=== PATIENT | female | born 1955 | race Caucasian/White ===

== ENCOUNTER 2023-01-02 18:52 | Emergency (ER) | payer MEDICARE, SELFPAY ==
[2023-01-02 18:57] VITALS: BP 167/87; PULSE 104; RESP 20; TEMP 36.2; O2SAT 98
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
--- OUTSIDE RECORDS SUMMARY | 2023-01-02 19:48 | XMS_ITS | Continuity of Care Document ---
Author Name Unknown Organization [facility] Address [address] [place] [phone] Phone Care Team Providers Care Call Center Coordinator Name Role Phone Vel Guerrero MD Unavailable Unavailable Allergies, Adverse Reactions, Alerts Substance Reaction Status Criticality Sulfa (Sulfonamide Antibiotics) Active No Information Active No Information Medications Medication Instructions Dosage Effective Dates (start - stop) Status Comments aspirin 81 mg chewable tablet chew 1 tablet by oral route every day 81 MG - Active levothyroxine 100 mcg tablet take 1 tablet by oral route every day 100 MCG - Active MAGNESIUM CITRATE (unknown strength) Not Available - Active liothyronine 5 mcg tablet take 1 tablet by oral route every day 5 MCG - Active Co Q-10 100 mg capsule - Active metformin 500 mg tablet Take 2 tablets in AM, 1 tablet in PM - Active rosuvastatin 40 mg tablet take 1 tablet by oral route every day 40 MG - Active meloxicam 15 mg tablet take 1 tablet by oral route every day 15 MG - Active Vitamin D3 125 mcg (5,000 unit) tablet - Active Procedures Procedure Date OFFICE/OUTPATIENT VISIT, EST LE Arterial / Graft Bilateral OFFICE/OUTPATIENT VISIT, EST LORELEI/PPG OFFICE/OUTPATIENT VISIT, EST OFFICE/OUTPATIENT VISIT, NEW Advance Directives Directive Yes / No Effective Date File Name No Information Encounters Encounter Description Practice Location Reason(s) For Visit Diagnoses Date Provider Providers Copied on Encounter [facility], [address] [place] [address], [place], [place], [id number], [place] tel: [phone] [place] Office No Information Mar-2 3 Yolanda Vel. [address] [facility], [place] [address], [place], [id number] . tel: [phone] Referring Provider: Usama Serna, [address] [place] [address] [address], [place], [address]. tel:[phone] OFFICE/OUTPA TIENT VISIT, [facility], [facility] [address], [place], [id number], [place] tel: [phone] [place] 5 R calf pain (chief complaint) Atherosclerosis of craig artery of both lower extremities with intermittent claudication 2 Kavon Ceja er. [address] [facility], [facility] [address], [place], [id number] , [place]. tel: [phone] Referring Provider: Usama Serna, [address] [place] [address] [address], [address]. tel:[phone] OFFICE/OUTPA TIENT VISIT, [facility], [facility] [address], [id number], [place] tel: [phone] [place] 5 PAD (chief complaint) Atherosclerosis of craig artery of both lower extremities with intermittent claudication Sep-0 2 Kavon Ceja er. [address] [facility], [facility] [address], [place], [id number] , [place]. tel: [phone] Referring Provider: Usama Serna, [address] [place] [address] [address], [place], [address]. tel:[phone] OFFICE/OUTPA TIENT VISIT, [facility], [address] [facility] [address], [place], [id number], [place] tel: [phone] [place] 5 PVD w IC (chief complaint) Atherosclerosis of craig artery of both lower extremities with intermittent claudication Adithya-0 2 Kavon Ceja er. [address] [facility], [facility] [address], [place], [id number] , [place]. tel: [phone] Referring Provider: Usama Serna, [address] [facility] [address], [place], [address]. tel:[phone] OFFICE/OUTPA TIENT VISIT, [facility], [address] [facility] [address], [id number], [place] tel: [phone] [place] 5 PVD (chief complaint) Atherosclerosis of craig artery of both lower extremities with intermittent claudicationContra st media allergyFamily history of abdominal aortic aneurysm (AAA) 2 Wixramsey Ceja er. [address] [facility], [address], [place], [place], [id number] , [place]. tel: [phone] Referring Provider: Usama Serna, [address] [place] [address] [address], [place], [address]. tel:[phone] [facility], [address] [facility] [address], [place], [id number], [place] tel: [phone] [place] [facility] No Information 2 [address] [place], [place], [id number] , [place]. tel: [phone] Referring Provider: Usama Serna, [address] [place] [address] [address], [place], [address]. tel:[phone] Family History Family Member Type Diagnosis Age At Onset No Information Payers Payer name Insurance type Covered democrat ID [place] MB [id number] [facility] 1 CI [id number] Social History Type Description Quantity Date Captured Comments Alcohol Use Details Unknown Caffeine Use Details Unknown Tobacco Use Status No Information Smoking Status No Information Sex Female Chief Complaint And Reason For Visit No Information Reason For Referral Reason For Referral No Information Plan Of Treatment Date Type Action Status Referral Ordered: CTA Aorta With Peripheral Runoff W/ AND W/O DYE (Timeframe: 1 Week) (Location: [facility]) Appointment date/timeframe: 1 Week ordered Patient Education Learning About Physical Activity completed Patient Education Learning About High Blo od Pressure completed Patient Education Learning About Physical Activity completed History Of Present Illness Encounter Date Complaint History Of Prese nt Illness R calf pain Relevant Problem s: Bilateral SFA occlusion [id number] exercising on treadmill she is able to go 5 min on 4% incline at 2.3 mph improved no ulceration no rest pain PAD @Symptoms :longs tanding LE claudication 200 steps , bilateral calf region @Risk Factors :Hyperlipidemia Former smoker@Sequelae :@Associated conditions :crotid ultrasound is normal @Current Activity :@Test findings :Bilateral LE Arterial duplex ultrasound indicates long SFA occlusions@Treated with :Status: -chronic PVD w IC @Symptoms :longs tanding LE claudication 200 steps , bilateral calf region @Risk Factors :Hyperlipidemia Former smoker@Sequelae :@Associated conditions :crotid ultrasound is normal @Current Activity :@Test findings :Bilateral LE Arterial duplex ultrasound indicates long SFA occlusions@Treated with :Status: -chronicpatient is seen in follow-up of her CT scan. I reviewed the images and results with her today. PVD @Symptoms :longs tanding LE claudication 200 steps , bilateral calf region @Risk Factors :Hyperlipidemia Former smoker@Sequelae :@Associated conditions :crotid ultrasound is normal @Current Activity :@Test findings :Bilateral LE Arterial duplex ultrasound indicates long SFA occlusions@Treated with :Status: -chronic Functional Status Date Functional Assessmen t No Information Instructions Date Instruction Additional Infor karon continue regimented exercise programfollow up in 3 months with LORELEI testing Related to Atherosclerosis of craig artery of both lower extremities with intermittent claudication she is motivated and wishes to participate in Supervised Exercise Therapy program to build collaterals and improved ICD / ACD follow up in 3 months Related to Atherosclerosis of craig artery of both lower extremities with intermittent claudication she will continue as pirin and statin therapy.Continue regimented exercise program.Follow-up in the fall with ankle brachial index testing. She should call sooner if claudication symptoms progress Related to Atherosclerosis of craig artery of both lower extremities with intermittent claudication Will check CTA and r unoff to evaluate options continue statin therapy further discussion upon review of CT scan Related to Atherosclerosis of craig artery of both lower extremities with intermittent claudication Assessments Type Assessment Date No Information Patient Care Teams Name Effective Dates (start - stop) Status Members No Information
== END 2023-01-02 19:42 | disposition home or self-care (01) ==
LOC: ER 19:47
PROVIDERS: Emergency Provider Emergency Medicine
DX: S03.2XXA Dislocation of tooth, initial encounter (principal); W50.0XXA Accidental hit or strike by another person, initial encounter
CPT/HCPCS: 99281; 99282